=== PATIENT | male | born 1940 | race Caucasian/White ===

== ENCOUNTER 2016-05-19 16:14 | Emergency (ER) | payer OTHER ==
[~2016-05-19] VITALS: Ht 182.9 cm; Wt 94.1 kg
[~2016-05-19 16:14] MED LIST: ASPI81TA82 PO; CHOLMIS5 PO; EYE; GUAI100S6 PO; ZITH250T PO
[2016-05-19 16:18] VITALS: BP 139/74; PULSE 80; RESP 16; TEMP 99.5; O2SAT 95
[2016-05-19] MEDS ORDERED: LOVA40TA PO (16:43)
[2016-05-19] MEDS ORDERED: LATA0.002 EACH EYE (16:43)
[2016-05-19] MEDS ORDERED: PROS5TAB PO (16:43)
[2016-05-19] MEDS ORDERED: ATEN50TA PO (16:43)
[2016-05-19] MEDS ORDERED: LEVO25TA4 PO (16:43)
[2016-05-19] MEDS ORDERED: ASPI1TAB69 PO (16:44)
[2016-05-19] MEDS ORDERED: SODIUM CHLORIDE 0.9% FLUSH 5 ML FLUSH IVF PRN (17:30)
[2016-05-19 17:49] VITALS: BP_SYST 134; BP_SYST 138; BP_DIAS 76; BP_DIAS 81; PULSE 67; RESP 16; O2SAT 96
[2016-05-19 17:49] LABS: AUTOMATED NEUTROPHIL # 7.9 TH/MM3 (1.8-7.7); BASOPHIL # 0.1 TH/MM3 (0-0.2); BASOPHIL % 0.6 % (0.0-2.0); EOSINOPHIL # 0.1 TH/MM3 (0-0.4); EOSINOPHIL % 0.6 % (0.0-4.0); HEMATOCRIT 44.2 % (39.0-51.0); LYMPH % 13.4 % (9.0-44.0); LYMPHOCYTE # 1.5 TH/MM3 (1.0-4.8); MEAN CELL VOLUME 86.6 FL (80.0-100.0); MEAN CORPUSCULAR HEMOGLOBIN 28.9 PG (27.0-34.0); MEAN CORPUSCULAR HGB CONC 33.4 % (32.0-36.0); MONO % 11.1 % (0.0-8.0); NEUT % 74.3 % (16.0-70.0); PLATELET COUNT 157 TH/MM3 (150-450); RED CELL DISTRIBUTION WIDTH 11.9 % (11.6-17.2); WHITE BLOOD COUNT 10.8 TH/MM3 (4.0-11.0)
[2016-05-19 17:50] VITALS: RESP 16; O2SAT 98
[2016-05-19 17:50] LABS: HEMO FLAGS DIFF FINAL
[2016-05-19 17:56] LABS: CHLORIDE 102 MEQ/L (98-107); SODIUM (NA) 135 MEQ/L (136-145)
--- NOTE | 2016-05-19 17:57 | RADHPO ---
EXAM DATE/TIME: 05/19/2016 17:25 [place] COMPARISON: No previous studies available for comparison. INDICATIONS : Fever and cough. MEDICAL HISTORY : None. SURGICAL HISTORY : None. ENCOUNTER: Initial ACUITY: 4 - 6 days PAIN SCORE: 0/10 LOCATION: Bilateral chest FINDINGS: Patchy basilar airspace consolidation most characteristic of bronchopneumonia. No effusion. No pneumo thorax. Heart size upper limits normal. CONCLUSION: 1. Patchy basilar airspace disease predominantly on left side most characteristic of bronchopneumonia or aspiration. Ghassan Suarez MD on May 19, 2016 at 17:54 Board Certified Radiologist. This report was verified electronically.
[2016-05-19 18:00] LABS: ANION GAP 11 MEQ/L (5-15); BICARBONATE 22.3 MEQ/L (21.0-32.0); BLOOD UREA NITROGEN 14 MG/DL (7-18)
[2016-05-19 18:03] LABS: ALT (GPT) 42 U/L (12-78); AST (GOT) 34 U/L (15-37); GLOMERULAR FILTRATION RATE 49 ML/MIN (>89)
[2016-05-19 18:05] LABS: TOTAL BILIRUBIN ADULT 0.7 MG/DL (0.2-1.0)
[2016-05-19 18:06] LABS: ALKALINE PHOSPHATASE 64 U/L (45-117)
[2016-05-19] MEDS ORDERED: LEVA750T PO (18:24)
--- NOTE | 2016-05-19 18:24 | PD ---
HPI Chief Complaint: Cold / Flu Symptoms Time Seen by Provider: 17:02 Travel History International Travel<30 days: No Contact w/Intl Traveler<30days: No Traveled to known affect area: No History of Present Illness HPI Patient 76-year-old male smoker presents with cough congestion productive of green sputum for the past week. Patient states she's had intermittent hot and chills. Has a history of pneumonia in the past. Patient is taking cough syrup at home with some relief. He is here with his daughter today is concerned that he might have developed pneumonia again. Denies any body aches headache nausea vomiting or diarrhea. Patient's states he had a pneumonia shot but did not get a flu shot this year because of the line was too long. PFSH Past Medical History Blood Disorders: No High Cholesterol: Yes Diabetes: No Diminished Hearing: No Deep Vein Thrombosis: Yes Glaucoma: Yes Hypertension: Yes Thyroid Disease: Yes Tetanus Vaccination: > 5 Years Influenza Vaccination: Yes Past Surgical History Abdominal Surgery: Yes (HERNIA REPAIR) Appendectomy: Yes Other Surgery: Yes (INGUINAL HERNIA REPAIR) Social History Alcohol Use: No Tobacco Use: Yes (1 PPD OF CIGS) Substance Use: No Allergies-Medications (Allergen,Severity, Reaction): Coded Allergies: No Known Allergies (Verified , 05/19/16) Reported Meds & Prescriptions Reported Meds & Active Scripts Active Levaquin (Levofloxacin) 750 Mg Tab 750 Mg PO DAILY 10 Days Reported Aspirin 81 Mg Tabdr 81 Mg PO DAILY Proscar (Finasteride) 5 Mg Tab 5 Mg PO DAILY Do not crush. Lovastatin 40 Mg Tab 40 Mg PO DAILY Levothyroxine (Levothyroxine Sodium) 25 Mcg Tab 25 Mcg PO DAILY Latanoprost Opth Drops (Latanoprost) 0.005% Drops 1 Drop EACH EYE HS Refrigerate until opened. Atenolol 50 Mg Tab 50 Mg PO DAILY Review of Systems Except as stated in HPI: all other systems reviewed are Neg Physical Exam Narrative GENERAL: Well-developed well-nourished in no apparent distress SKIN: Warm and clammy. HEAD: Atraumatic. Normocephalic. EYES: Pupils equal and round. No scleral icterus. No injection or drainage. ENT: No nasal bleeding or discharge. Mucous membranes pink and moist. NECK: Trachea midline. No JVD. CARDIOVASCULAR: Regular rate and rhythm. No murmur appreciated. RESPIRATORY: No accessory muscle use. Clear to auscultation. Breath sounds equal bilaterally. GASTROINTESTINAL: Abdomen soft, non-tender, nondistended. Hepatic and splenic margins not palpable. MUSCULOSKELETAL: No obvious deformities. No clubbing. No cyanosis. No edema. NEUROLOGICAL: Awake and alert. No obvious cranial nerve deficits. Motor grossly within normal limits. Normal speech. PSYCHIATRIC: Appropriate mood and affect; insight and judgment normal. Data Data Last Documented VS Vital Signs Date Time Temp Pulse Resp B/P Pulse Ox O2 Delivery O2 Flow Rate FiO2 05/19/16 17:50 98 Nasal Cannula 2 05/19/16 17:50 16 05/19/16 17:49 67 138/81 134/76 05/19/16 16:18 99.5 Orders Chest, Pa & Lat (05/19/16 ) Complete Blood Count With Diff (05/19/16 17:20) Comprehensive Metabolic Panel (05/19/16 17:20) Ecg Monitoring (05/19/16 17:20) Bilateral Bp Monitoring (05/19/16 17:20) Iv Access Insert/Monitor (05/19/16 17:20) Oximetry (05/19/16 17:20) Oxygen Administration (05/19/16 17:20) Sodium Chloride 0.9% Flush (Ns Flush) (05/19/16 17:30) Levofloxacin (Levaquin) (05/19/16 18:30) Sodium Chlor 0.9% 1000 Ml Inj (Ns 1000 M (05/19/16 18:30) Labs Laboratory Tests Test 05/19/16 17:40 White Blood Count 10.8 TH/MM3 Red Blood Count 5.10 MIL/MM3 Hemoglobin 14.7 GM/DL Hematocrit 44.2 % Mean Corpuscular Volume 86.6 FL Mean Corpuscular Hemoglobin 28.9 PG Mean Corpuscular Hemoglobin 33.4 % Concent Red Cell Distribution Width 11.9 % Platelet Count 157 TH/MM3 Mean Platelet Volume 7.1 FL Neutrophils (%) (Auto) 74.3 % Lymphocytes (%) (Auto) 13.4 % Monocytes (%) (Auto) 11.1 % Eosinophils (%) (Auto) 0.6 % Basophils (%) (Auto) 0.6 % Neutrophils # (Auto) 7.9 TH/MM3 Lymphocytes # (Auto) 1.5 TH/MM3 Monocytes # (Auto) 1.2 TH/MM3 Eosinophils # (Auto) 0.1 TH/MM3 Basophils # (Auto) 0.1 TH/MM3 CBC Comment DIFF FINAL Differential Comment Sodium Level 135 MEQ/L Potassium Level 4.0 MEQ/L Chloride Level 102 MEQ/L Carbon Dioxide Level 22.3 MEQ/L Anion Gap 11 MEQ/L Blood Urea Nitrogen 14 MG/DL Creatinine 1.40 MG/DL Estimat Glomerular Filtration 49 ML/MIN Rate Random Glucose 114 MG/DL Calcium Level 8.5 MG/DL Total Bilirubin 0.7 MG/DL Aspartate Amino Transf 34 U/L (AST/SGOT) Alanine Aminotransferase 42 U/L (ALT/SGPT) Alkaline Phosphatase 64 U/L Total Protein 7.8 GM/DL Albumin 3.4 GM/DL [facility] Medical Decision Making Medical Screen Exam Complete: Yes Emergency Medical Condition: Yes Differential Diagnosis Pneumonia, URI, sepsis seems unlikely, influenza. Narrative Course Curb 65 score is 1 point (low risk group). PSI score is class III. Patient was roomed in the emergency department, his vital signs are reassuring. No Sirs criteria. He does have a pneumonia on the left lower lobe retrocardiac. He appears well and maintaining his saturation. Creatinine is minimally elevated to 1.4. Which is at patient's baseline. Discussed with the patient the findings and PSI score of 3 which is inpatient versus outpatient management. He would prefer to go home at this time. He appears well and his vital signs are stable. Discussed with her need for follow-up closely with his primary care physician. He is stable for discharge at this time. Will be started on Levaquin 750 mg first dose given in the emergency department. This be daily for 10 days. Discussed with him signs symptoms that should prompt emergent reevaluation. Diagnosis Primary Impression: Pneumonia Qualified Code: J18.1 - Pneumonia of left lower lobe due to infectious organism Med/Other Pt SpecificInfo: Prescription(s) given Scripts Levofloxacin (Levaquin)750 Mg Plw316 Mg PO DAILY 10 Days Ref 0 Prov:Shady Harris MD 05/19/16 Disposition: 01 DISCHARGE HOME Condition: Stable Shady Harris MD May 19, 2016 18:24
[2016-05-19] MEDS ORDERED: LEVOFLOXACIN 750 MG TAB PO ONE (18:30)
[2016-05-19] MEDS ORDERED: SODIUM CHLOR 0.9% 1000 ML INJ 1,000 ML IV ONE (18:30)
[2016-05-19 19:25] VITALS: BP 155/70; PULSE 68; RESP 18; O2SAT 95
== END 2016-05-19 19:30 | disposition home or self-care (01) ==
LOC: PHEFT 16:14
DX: J18.1 Lobar pneumonia, unspecified organism (principal); E78.00 Pure hypercholesterolemia, unspecified; I10 Essential (primary) hypertension; E07.9 Disorder of thyroid, unspecified; H40.9 Unspecified glaucoma; F17.200 Nicotine dependence, unspecified, uncomplicated; Z87.01 Personal history of pneumonia (recurrent); Z86.718 Personal history of other venous thrombosis and embolism
CPT/HCPCS: 71020; 80053; 85025; 99284; J7030